=== PATIENT | female | born 1970 | race Caucasian/White ===

== ENCOUNTER 2021-04-18 07:48 | Day surgery (SDCO) | payer OTHER ==
[~2021-04-18] VITALS: Ht 155 cm; Wt 96.0 kg
[~2021-04-18 07:48] MED LIST: ATARAX25 MG PO; ATORVASTATIN CA10 MG PO; CITALOPRAM HBR20 MG PO; FIBER625 MG PO; LASIX20 MG PO; XANAX0.25 MG PO
[2021-04-18 08:16] LABS: HCG (URINE) SCREEN NEGATIVE (NEGATIVE)
[2021-04-19 06:04] LABS: BASOPHIL 0.5 % (0-2); EOSINOPHIL 0.2 % (0-5); HCT 33.5 % (37.0-47.0); HGB 11.2 g/dl (12.5-16.0); LYMPHOCYTE 12.5 % (15-48); MCH 32.9 pg (25.0-31.0); MCHC 33.4 g/dL (32.0-36.0); MCV 98.5 fL (78.0-100.0); MONOCYTE 6.6 % (0-12); MPV 10.4 fL (6.0-9.5); NEUTROPHIL 79.4 % (41-80); NRBC 0; PLT 249 K/uL (150-400); RDW 13.5 % (11.5-14.0); WBC 17.2 K/uL (4.0-10.5)
[2021-04-19] MEDS ORDERED: COLACE100 MG PO (06:06)
[2021-04-19] MEDS ORDERED: MOTRIN600 MG PO (06:06)
[2021-04-19] MEDS ORDERED: PERCOCET 5-3251 EACH PO (06:06)
[2021-04-19 06:07] LABS: ALBUMIN 2.9 g/dL (3.4-5.0); BILIRUBIN - TOTAL 0.3 mg/dL (0.2-1.0); BUN/CREAT RATIO (CALC) 17.8 RATIO; CREATININE 0.73 mg/dL (0.51-0.95); GLOBULIN (CALCULATION) 3.4 g/dL; TOTAL PROTEIN 6.3 g/dL (6.4-8.2)
== END 2021-04-19 10:33 | disposition home or self-care (01) ==
LOC: FMS 07:48 → FSDC 07:48 → FMS 09:00
PROVIDERS: ADMIT Obstetrics & Gynecology
DX: D25.9 Leiomyoma of uterus, unspecified (principal); I10 Essential (primary) hypertension; E78.00 Pure hypercholesterolemia, unspecified; F41.9 Anxiety disorder, unspecified; F32.9 Major depressive disorder, single episode, unspecified; E66.9 Obesity, unspecified; Z68.36 Body mass index [BMI] 36.0-36.9, adult; Z91.040 Latex allergy status; Z88.8 Allergy status to other drugs, medicaments and biological substances; Z79.899 Other long term (current) drug therapy
CPT/HCPCS: 36415; 80053; 84703; 85025; 86850; 86900; 86901; G0378; J0690; J1100; J1170; J1885; J2250; J2405; J2704; J2710; J3010; J7120; J7121